=== PATIENT | female | born 2000 | race African-American/Black ===

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

== ENCOUNTER 2021-09-04 12:41 | Emergency (ER) | payer OTHER ==
[~2021-09-04] VITALS: Ht 162.6 cm; Wt 90.7 kg
[2021-09-04] MEDS ORDERED: DOLOGESIC 500-1 EACH (12:59)
[2021-09-04] MEDS ORDERED: PROTONIX20 MG (12:59)
[2021-09-04] MEDS ORDERED: QUETIAPINE FUM400 M1 (13:00)
[2021-09-04] MEDS ORDERED: DEXMETHYLPHENID15 MG (13:00)
[2021-09-04] MEDS ORDERED: ATIVAN0.5 M1 (13:00)
== END 2021-09-04 21:32 | disposition home or self-care (01) ==
LOC: ER 12:41 → EMR PED 12:41
DX: I88.0 Nonspecific mesenteric lymphadenitis (principal); R10.9 Unspecified abdominal pain; R19.7 Diarrhea, unspecified; E86.0 Dehydration; Z88.8 Allergy status to other drugs, medicaments and biological substances; Z20.822 Contact with and (suspected) exposure to COVID-19